=== PATIENT | male | born 1975 | race Asian ===

== ENCOUNTER 2018-04-16 11:38 | Outpatient (CLI) | payer BC ==
[~2018-04-16 11:38] MED LIST: FURO40TA93 PO; K-TAB20 MEQ PO; LISI5TAB10 PO
[2018-04-16 12:29] LABS: PLATELET COUNT 331 K/uL (142-355)
[2018-04-16 13:08] LABS: POTASSIUM 3.8 mmol/L (3.6-5.2)
== END 2018-04-16 19:18 | disposition home or self-care (01) ==
LOC: LABW 11:38
PROVIDERS: Family Medicine
DX: M54.5 Low back pain (principal); I10 Essential (primary) hypertension; E11.3211 Type 2 diabetes mellitus with mild nonproliferative diabetic retinopathy with macular edema, right eye; E55.9 Vitamin D deficiency, unspecified; E53.9 Vitamin B deficiency, unspecified
CPT/HCPCS: 36415; 80053; 80061; 81000; 82306; 82607; 83036; 83735; 84439; 84443; 84550; 85027